=== PATIENT | female | born 2000 | race Caucasian/White ===

== ENCOUNTER 2023-09-20 18:05 | Emergency (ER) | payer MEDICAID, SELFPAY ==
[2023-09-20 18:07] VITALS: BP 146/84; PULSE 76; RESP 18; TEMP 36.7; O2SAT 95; BMI 36.0
--- NOTE | 2023-09-20 18:17 | ED_ITS ---
<Statement entered by Charlotte House MD - 09/20/23 22:56> I was consulted by the GERMAN, and we discussed the complexity of the problems being addressed. I approved the treatment and management plan for this patient's care in the emergency department, thus performing a substantive portion of the medical decision making. Charlotte House MD, KERWIN, FACEP Discharge Plan Disposition Patient Disposition: Home, Self-Care Condition: Good Prescriptions Prescriptions: No Action No Known Home Medications Referrals Follow up/Referrals: Patrick Peoples MD [Staff Physician] - See instructions Provider,MD Dena [Primary Care Provider] - See instructions Activity Restrictions/Add. Instructions Additional Instructions/Restrictions: Please call and follow-up with your inventory worker in the morning. Dr. Ramirez of hematology oncology will call you to schedule an appointment but he will see you in his office on Thursday. Please return to the emergency department for a fever of 101 or greater for any signs or symptoms as needed. Clinical Impressions Clinical Impression: Vaginal spotting Neutropenia Qualifiers: Neutropenia type: unspecified Qualified Code(s): D70.9 - Neutropenia, unspecified Instructions Patient Instructions: DI for Urinary Tract Infection (UTI), DI for Urinary Tract Infection in Children Discharge ED Provider: Charlotte House General Adult HPI General Chief complaint: Urogenital-Female Stated complaint: eleven weeks preg,cramping and bleeding Time Seen by Provider: 09/20/23 18:17 History of Present Illness HPI narrative: Patient is here for evaluation of spotting. Patient is 11 weeks and reports spotting after sex. Patient noticed a little last night but noticed some clots today. She has previously had spotting with this at approximately 7 weeks. She has had a miscarriage previous to this . She follows with [facility] in [place]. Patient denies chest pain fever chills hemoptysis hematochezia melena hematemesis hematuria. Related Data Home Medications Medication Instructions Recorded Confirmed No Known Home Medications 09/20/23 09/20/23 Allergies Allergy/AdvReac Type Severity Reaction Status Date / Time No Known Allergies Allergy Verified 09/20/23 18:29 [facility] Disclaimer: The information contained in this section may have been updated after the patient was seen, as this information can be updated by other users. Social History Smoking Status: Never smoker alcohol intake: never current occupational status: employed Travel in the last 8 weeks: None ROS Obtained: Yes Systems reviewed as appropriate & no additional complaints except as documented Physical Exam General General appearance: alert and in no apparent distress Respiratory Respiratory exam: Present normal lung sounds bilaterally Cardiovascular Cardiovascular exam: Present regular rate and normal rhythm Neurological Exam Neurological exam: Present alert and oriented X3 Medical Decision Making Medical Records Medical records reviewed: Yes I reviewed the patient's medical records. Gabriel Inquiry Pt receiving controlled substance: No Vital Signs: 09/20/23 18:07 09/20/23 18:31 09/20/23 19:46 Temperature 98.1 F 98.0 F Temperature Source Oral Pulse Rate 89 70 Pulse Rate [Right] 76 Respiratory Rate 18 20 Blood Pressure 130/75 118/70 Blood Pressure [Right Arm] 146/84 H Blood Pressure Mean [Right Arm] 104 02 Sat by Pulse Oximetry 95 100 Oxygen Delivery Method Room Air Room Air Lab Data Lab results reviewed: Yes I reviewed the patient's lab results. Lab Results 09/20/23 18:15: Urine Color Yellow, Urine Appearance Clear, Urine pH 6.0, Ur Specific [place] <= 1.005, Urine Protein Negative, Urine Glucose (UA) Negative, Urine Ketones Negative, Urine Blood 2+, Urine Nitrate Negative, Urine Bilirubin Negative, Urine Urobilinogen 0.2, Ur Leukocyte Esterase Negative, Urine RBC None, Urine WBC Occasional, Ur Squamous Epith Cells Occasional, Urine Bacteria Trace 09/20/23 18:30: WBC 2.9 L, RBC 4.37, Hgb 11.8 L, Hct 35.0 L, MCV 80.1 L, MCH 27.0, MCHC 33.7, RDW 16.9, Plt Count 286, MPV 8.2, Neut % (Auto) 17.1 L, Lymph % (Auto) 69.8 H, [place] % (Auto) 9.2, Eos % (Auto) 2.5, Baso % (Auto) 1.5, Neut # (Auto) 0.5 L*, Lymph # (Auto) 2.0, [place] # (Auto) 0.3, Eos # (Auto) 0.1, Baso # (Auto) 0.0, Total Counted 100, Neutrophils % (Manual) 3 L, Lymphocytes % (Manual) 76 H, Atypical Lymphs % 11.0, Monocytes % (Manual) 9, Eosinophils % (Manual) 1, Platelet Estimate Normal, RBC Morphology Normal, Sodium 136, Potassium 3.8, Chloride 104, Carbon Dioxide 24, Anion Gap 11.8, BUN 10, Creatinine 0.60, Estimated Creat Clear 238, Estimated GFR 123, Est GFR ( Amer) 149, Glucose 107 H, Calcium 10.0, HCG, Quant [id number] H 09/20/23 18:40: Blood Type A Positive, Antibody Screen Negative 09/20/23 18:30 09/20/23 18:30 Orders (Tests/Meds): ORDERS Category Date Time Status Type and Screen Stat BBK 09/20/23 18:40 Completed US OB <= 14 weeks fetus Stat Exams 09/20/23 18:18 Taken BMP [Basic Metabolic Panel] Stat Lab 09/20/23 18:30 Completed CBC w/Auto Diff [Complete Blood Count Auto Diff] Stat Lab 09/20/23 18:30 Completed Folate Routine Lab 09/20/23 18:30 Received HCG,Quantitative Stat Lab 09/20/23 18:30 Completed Peripheral Smear Review Routine Lab 09/20/23 18:30 Received UA [Urinalysis and Microscopic] Stat Lab 09/20/23 18:15 Completed Vitamin B12 Routine Lab 09/20/23 18:30 Received Medical Decision Narrative: In summary patient is a 23-year-old female who presents to the emergency department for evaluation of spotting. Patient is hemodynamically stable upon arrival, afebrile. Physical exam is unremarkable and nonfocal. Differential diagnosis includes post cordis spotting versus miscarriage etc. Initial workup will be conducted with hematologic labs urinalysis transvaginal ultrasound serum hCG and type and screen.. Initial interventions were considered however given patient is stable deferred. Initial workup reviewed by me and patient is unexpectedly neutropenic with that neutrophil count of 500 with no other depressed cell lines normal H&H normal platelets. However the remainder of her laboratory results including the remainder of her CBC are nonactionable. Transvaginal ultrasound is normal and showed a normal intrauterine with heartbeat. Upon repeat evaluation we had an interactive discussion regarding her laboratory workup and patient was able to ask questions. Patient reportedly had antibiotics about a month ago however it was Macrobid which she is not consistent with neutropenia. Given this I had an interactive discussion with Dr. Ramirez of hematology oncology. He plans to see the patient on Thursday in his clinic. Patient thus is appropriate for discharge home with return precautions. Critical Care Critical Care Time Critical Care Time: No
--- NOTE | 2023-09-20 18:18 | US_ITS ---
PROCEDURE INFORMATION: Exam: US First Trimester, Transabdominal Exam date and time: 09/20/2023 6:51 PM Age: 23 years old Clinical indication: Lmp or gestational age (in weeks): 11 weeks 1 day; Other: Spotting; ; Additional info: 11 weeks , spotting LABS AND CLINICAL REPORTS: Gestational age (Established): 11 w 1 d Estimated due date (Established): 04/09/2024 TECHNIQUE: Imaging protocol: Real-time transabdominal obstetrical ultrasound of the maternal pelvis and a first trimester , less than 14 weeks 0 days, with image documentation. COMPARISON: No relevant prior studies available. FINDINGS: GESTATION: Gestation: Yolk sac measures 7.9 mm. Embryonic/ heart rate: 174 bpm Extra-embryonic membranes/Placenta: Unremarkable. No subchorionic bleed. Amniotic/Chorionic fluid: Amniotic and extra-amniotic fluid are normal for gestational age. BIOMETRY: Gestational age (AUA): 11 w 1 d Estimated due date (AUA): 04/09/2024 [place] rump length (CRL): 42 mm. EGA (CRL) is 11 w 0 d MATERNAL: Uterus: Unremarkable. Cervix: Multiple anechoic cystic structures associated with the cervix compatible with nabothian cysts largest measures 9 mm in diameter. Right ovary/adnexa: Right ovary measures 3.92 cm x 2.83 cm x 2.95 cm. Right ovarian volume is 17.14 mL. Left ovary/adnexa: Left ovary measures 3.17 cm x 2.06 cm x 1.64 cm. Left ovarian volume is 5.61 mL. Intraperitoneal space: No intraperitoneal free fluid. IMPRESSION: 1. Gestational sac with pole measuring 42 mm in length compatible with estimated gestational age of 11 weeks and 0 days. heart rate is 174 bpm. 2. Cervix is closed, and has multiple nabothian cysts.
[2023-09-20 18:25] LABS: Microscopic, Urine URINE MICROSCOPIC (MICROSCOPIC)
[2023-09-20 18:27] LABS: Appearance,Urine CLEAR (Clear); Bilirubin,Urine Negative (Negative); Blood, Urine 2+ (Negative); Color,Urine YELLOW (Yellow); Glucose,Urine (UA) Negative (Negative); Ketones,Urine Negative (Negative); Leukocyte Esterase,Urine Negative (Negative); Nitrate,Urine Negative (Negative); Protein,Urine Negative (Negative); Specific Gravity, Urine <= 1.005 (1.005-1.030); Urobilinogen,Urine 0.2 EU/dl (0.2)
[2023-09-20 18:31] VITALS: BP 130/75; PULSE 89; O2SAT 100
--- NOTE | 2023-09-20 18:31 | PC.NURSE ---
radiology notified of tvus
[2023-09-20 18:45] LABS: Basophils % 1.5 % (0.1-2.0); Eosinophils # 0.1 K/mm3 (0.0-0.4); Eosinophils % 2.5 % (0.1-12.0); Hemoglobin 11.8 g/dL (12.2-16.2); Lymphocytes % 69.8 % (10-50); Mean Corpuscular HGB Conc 33.7 g/dL (31.8-35.4); Mean Corpuscular Volume 80.1 fl (81-99); Mean Platelet Volume 8.2 fl (7.4-10.4); Monocytes # 0.3 K/mm3 (0.1-1.0); Monocytes % 9.2 % (1.7-9.3); Neutrophils # 0.5 K/mm3 (1.8-7.8); Neutrophils % 17.1 % (37.0-80.0); Platelet Count 286 K/mm3 (142-424); Red Blood Count 4.37 M/mm3 (4.20-5.40); Red Cell Distribution Width 16.9 % (11.5-17.5); White Blood Count 2.9 K/mm3 (4.8-10.8)
[2023-09-20 18:53] LABS: WBC,Urine Occasional #/hpf (0-3)
[2023-09-20 18:54] LABS: Bacteria,Urine Trace /lpf; Squamous Epithelial Cell,Urine Occasional #/hpf (0-5)
--- NOTE | 2023-09-20 18:55 | PC.NURSE ---
PT TO US
[2023-09-20 18:57] LABS: Chloride 104 mmol/L (98-107); Potassium 3.8 mmoL/L (3.5-5.1); Sodium 136 mmol/L (136-145)
[2023-09-20 19:00] LABS: Anion Gap 11.8 mEq/L (5-15); Blood Urea Nitrogen 10 mg/dl (7-17); Carbon Dioxide 24 mmol/L (22.0-30.0); Creatinine Clearance Estimated 238 mL/min (50-200); Estimated Glomerular Filt Rate 123 ml/min (>60); GFR (African American) 149 ML/MIN (>60)
[2023-09-20 19:01] LABS: Glucose 107 mg/dl (74-100)
[2023-09-20 19:03] LABS: MANUAL DIFFERENTIAL MANUAL DIFFERENTIAL (MANUAL DIFF)
--- NOTE | 2023-09-20 19:23 | PC.NURSE ---
per retail pharmacy technician patient US is WNL and showed one fetus with heart beat
[2023-09-20 19:35] LABS: Eosinophils % 1 % (0-3); Lymphocytes % 76 % (10-50); Monocytes % 9 % (2-9); Neutrophils % 3 % (42-76); Total Cells Counted 100
[2023-09-20 19:37] LABS: RBC Morphology Normal
[2023-09-20 19:39] LABS: Platelet Estimate Normal
[2023-09-20 19:43] LABS: HCG,Quantitative 32215 mIU/ml (0-5.42)
[2023-09-20 19:46] VITALS: BP 118/70; PULSE 70; RESP 20; TEMP 36.7; O2SAT 98
[2023-09-20 20:46] LABS: Vitamin B12 275 pg/mL (239-931)
[2023-09-22 19:30] LABS: Peripheral Smear Review Scanned Result
== END 2023-09-20 19:47 | disposition home or self-care (01) ==
PROVIDERS: Physician Assistant; Emergency Provider Student in an Organized Health Care Education/Training Program
DX: O26.851 Spotting complicating pregnancy, first trimester (principal); D70.9 Neutropenia, unspecified; Z3A.11 11 weeks gestation of pregnancy; Z87.59 Personal history of other complications of pregnancy, childbirth and the puerperium
CPT/HCPCS: 36415; 76801; 80048; 81001; 82607; 82746; 84702; 85007; 85025; 86850; 99284